=== PATIENT | male | born 1945 | race Caucasian/White ===

== ENCOUNTER → 2021-11-15 | Outpatient (CLI) | payer OTHER ==
--- NOTE | 2021-11-15 17:50 | Diagnostic Imaging Report ---
INDICATION: Left knee pain. Time of Exam: 2:04 PM Multiple views of the left knee were obtained. There is medial and patellofemoral compartment degenerative change with joint space narrowing and marginal spurring. No fracture, dislocation or effusion is detected. IMPRESSION: Degenerative changes. No acute bony abnormality is detected. Dictated by: Dictated on workstation # [id number]
== END ==
LOC: ORTHO 13:45
PROVIDERS: ATTEND Orthopaedic Surgery
DX: M17.12 Unilateral primary osteoarthritis, left knee (principal)
CPT/HCPCS: 20610; 73564

== ENCOUNTER → 2022-01-24 | Outpatient (CLI) | payer OTHER | LOC: ORTHO 09:05 | PROVIDERS: ATTEND Orthopaedic Surgery | DX: M17.12 Unilateral primary osteoarthritis, left knee (principal) | CPT/HCPCS: 99213 ==

== ENCOUNTER 2022-02-09 05:30 | Outpatient (RCR) | payer OTHER ==
[~2022-02-09] VITALS: Ht 188 cm; Wt 100.0 kg
[2022-02-09 10:15] LABS: BASOPHILS % (AUTO) 0 % (0-10); EOSINOPHILS # (AUTO) 0.5 10^3/uL (0.0-0.3); EOSINOPHILS % (AUTO) 7 % (0-10); HEMATOCRIT 40 % (40-54); HEMOGLOBIN 13.5 g/dL (13.3-17.7); LYMPHOCYTES # (AUTO) 2.4 10^3/uL (1.0-4.0); LYMPHOCYTES % (AUTO) 30 % (12-44); MEAN CORPUSCULAR HEMOGLOBIN 32 pg (25-34); MEAN CORPUSCULAR HGB CONC 34 g/dL (32-36); MEAN CORPUSCULAR VOLUME 94 fL (80-99); MEAN PLATELET VOLUME 9.7 fL (9.0-12.2); MONOCYTES # (AUTO) 0.7 10^3/uL (0.0-1.0); MONOCYTES % (AUTO) 9 % (0-12); NEUTROPHILS # (AUTO) 4.1 10^3/uL (1.8-7.8); NEUTROPHILS % (AUTO) 53 % (42-75); PLATELET COUNT 192 10^3/uL (130-400); WHITE BLOOD COUNT 7.7 10^3/uL (4.3-11.0)
[2022-02-09 10:29] LABS: CREATININE SERUM 1.16 MG/DL (0.60-1.30); POTASSIUM 4.3 MMOL/L (3.6-5.0)
[2022-02-09 10:46] LABS: BILIRUBIN,URINE NEGATIVE (NEGATIVE); CLARITY,URINE CLEAR; COLOR,URINE YELLOW; GLUCOSE, URINE (UA) NEGATIVE (NEGATIVE); KETONES,URINE NEGATIVE (NEGATIVE); LEUKOCYTE ESTERASE ,URINE NEGATIVE (NEGATIVE); NITRITE,URINE NEGATIVE (NEGATIVE); PH,URINE 5.5 (5-9); PROTEIN,URINE NEGATIVE (NEGATIVE)
--- NOTE | 2022-02-09 10:59 | Diagnostic Imaging Report ---
INDICATION: Preoperative evaluation for knee surgery COMPARISON: None FINDINGS: Frontal and lateral views of the chest demonstrate normal heart size and pulmonary vascularity. The lungs are clear. There are no signs of infiltrate, pleural effusions or pneumothoraces. The visualized osseous structures show no acute abnormalities. IMPRESSION: 1. No acute process. No signs of infiltrates, effusions or pneumothoraces. Dictated by: Dictated on workstation # [id number]
[2022-02-09] MEDS ORDERED: ASPI-999 PO (11:07)
[2022-02-09] MEDS ORDERED: CARB200C6 PO (11:07)
[2022-02-09] MEDS ORDERED: VIT D (11:07)
[2022-02-09] MEDS ORDERED: BUPR150T28 PO (11:07)
[2022-02-09] MEDS ORDERED: VIT B (11:07)
[2022-02-09] MEDS ORDERED: ATOR80TA76 PO (11:07)
[2022-02-09] MEDS ORDERED: DONE10TA41 PO (11:07)
[2022-02-09] MEDS ORDERED: CARV25TA PO (11:07)
[2022-02-09] MEDS ORDERED: CYCL10TA25 PO (11:07)
[2022-02-09 11:09] LABS: BACTERIA,URINE TRACE /HPF; RBC,URINE RARE /HPF
[2022-02-09 11:10] LABS: SQUAMOUS EPITHELIAL CELL,UR RARE /HPF
[2022-02-09] MEDS ORDERED: PSYL1PAC10 PO (11:13)
[2022-02-09] MEDS ORDERED: IBUP-1773 PO (11:13)
[2022-02-09] MEDS ORDERED: MELA1TAB27 PO (11:13)
[2022-02-09] MEDS ORDERED: ACET-2650 PO (11:13)
[2022-02-09] MEDS ORDERED: MULT-974 PO (11:13)
[2022-02-09] MEDS ORDERED: SEMA1PEN3 SQ (11:13)
[2022-02-09] MEDS ORDERED: MAGN400C PO (11:13)
[2022-02-09] MEDS ORDERED: INSU100V52 SQ (11:13)
[2022-02-09] MEDS ORDERED: LORA10TA7 PO (11:13)
[2022-02-09] MEDS ORDERED: LOSA50TA63 PO (11:13)
[2022-02-09] MEDS ORDERED: MEMA10TA57 PO (11:13)
[2022-02-09] MEDS ORDERED: OMEP20CA18 PO (11:13)
[2022-02-09] MEDS ORDERED: METF-397 PO (11:13)
[2022-02-09 11:14] VITALS: BP 118/81
== END 2022-02-09 11:38 | disposition home or self-care (01) ==
LOC: PREOP 05:30 → EDSTATUS 09:00 → PREOP 11:38
PROVIDERS: ATTEND Orthopaedic Surgery
DX: Z01.818 Encounter for other preprocedural examination (principal); M17.12 Unilateral primary osteoarthritis, left knee; Z11.2 Encounter for screening for other bacterial diseases
CPT/HCPCS: 36415; 71046; 80048; 81000; 85025; 87081; 93005

== ENCOUNTER 2022-02-17 10:53 | Inpatient (IN) | payer OTHER, MEDICARE ==
[2022-02-17] VITALS (10 sets, daily range): BP systolic 142–187; BP diastolic 78–104
[~2022-02-17] VITALS: Ht 188 cm; Wt 101.3 kg
[~2022-02-17 10:53] MED LIST: ACET-2650 PO; ASPI-999 PO; ATOR80TA76 PO; BUPR150T28 PO; CARB200C6 PO; CARV25TA PO; CYCL10TA25 PO; DONE10TA41 PO; IBUP-1773 PO; INSU100V52 SQ; LORA10TA7 PO; LOSA50TA63 PO; MAGN400C PO; MELA1TAB27 PO; MEMA10TA57 PO; METF-397 PO; MULT-974 PO; OMEP20CA18 PO; PSYL1PAC10 PO; SEMA1PEN3 SQ; VIT B; VIT D
[2022-02-17] MEDS ORDERED: ceFAZolin 2 GM IV Premixed 50 ML IV ONE (11:30)
[2022-02-17] MEDS: LACTATED RINGERS 1,000 ML IV PRN ×2 (11:40→13:55)
[2022-02-17] MEDS ORDERED: LIDOCAINE PF 2% 5 ML (XYLOCAINE) VIAL ONE (11:48)
[2022-02-17] MEDS ORDERED: MIDAZOLAM 2 MG/2 ML (VERSED) VIAL ONE (11:48)
[2022-02-17] MEDS ORDERED: ROPIVACAINE 5MG/ML 30ML VIAL ONE (11:48)
[2022-02-17] MEDS ORDERED: ONDANSETRON 4 MG/2 ML (SDV) Z0FRAN ONE ×4 (11:57→17:00)
[2022-02-17] MEDS ORDERED: SODIUM CHLORIDE 0.9% IRRIGATIO 150 ML, TRANEXAMIC ACID INJECTION 3,000 MG IR ONE ×2 (12:00)
[2022-02-17] MEDS ORDERED: proPOfol 200 MG/20 ML (DIPRIVAN) VIAL IV ONE (12:15)
[2022-02-17] MEDS ORDERED: fentaNYL INJ 100 MCG/2 ML AMP ONE (12:17)
[2022-02-17] MEDS ORDERED: TRANEXAMIC ACID 100 MG/ML 10 ML INJECTION ONE (12:31)
--- NOTE | 2022-02-17 12:31 | Progress Note-Pre Operative ---
Pre-Operative Progress Note Date of Available H&P: Jan 24, 2022 Date H&P Reviewed: Feb 17, 2022 Time H&P Reviewed: 12:20 History & Physical: H&P Reviewed, Patient Examed, No changes noted Pre-Operative Diagnosis: Left Knee Primary OA MARI MITCHELL MD Feb 17, 2022 12:31
[2022-02-17] MEDS ORDERED: HYDROmorphone 2 MG/ML VIAL (DILAUDID) ONE (13:00)
[2022-02-17] MEDS ORDERED: PHENYLEPHRINE 100 MCG/ML 10 ML (ANESTHESIA) SYR ONE (14:47)
[2022-02-17] MEDS ORDERED: SEVOFLURANE (ULTANE) 15 ML INHAL SOLN ONE ×2 (14:47→14:48)
--- NOTE | 2022-02-17 15:04 | Operative Report - Ortho ---
Operative Report Surgeon (s)/Suction Roller (s) Surgeon MARI MITCHELL MD Suction Roller n/a Pre-Operative Diagnosis Left Knee Primary OA Post-Operative Diagnosis same Operative Report Date of Procedure: Feb 17, 2022 Name of Procedure Performed: Left Total Knee Arthroplasty Description & Findings After obtaining informed consent and marking the patient in the preoperative holding area, the patient did receive IV antibiotics. Patient was taken to the operating room and anesthesia was induced. Surgical timeout was taken. The left lower extremity was prepped and draped in the usual sterile fashion. Incision was made and carried down to fascia. Arthrotomy was performed on the medial side of the patella. Patella was retracted laterally and knee was flexed. Found to have circumferential osteophtye around the distal femur as well as exposed bone in the medial compartment. Hole was made in the distal femur for the intramedullary distal femoral cutting guide. Resection was made then the femur was sized as a 7. 4-in-1 block for a size [address]. Anterior cut was made and there was no notch. Posterior cut was made followed by the chamfers. Box cut was performed. Lug holes were drilled. Attention was turned to the tibial side, extramedullary tibial guide was put into place and aligned with the tibial crest. It was set to take 2 mm off of the affected medial side. Drop hayden was used to confirm alignment. Resection was made and was parallel to the joint line. Tibial bone block was removed. Lamina icu specialist was put into place and the menisci and posterior osteophytes we re removed. The knee was trialed with a size 7 femur and a size 6 tibia with a 9 mm poly trial. It was found to come out to full extension and flexed beyond 120 degrees. It was stable to varus and valgus stress throughout its range of motion. This was accepted. Knee was brought out into extension and the patella was prepared for an inset patellar component. Osteophytes were removed from around the perimeter of the patella. Trial implants were removed. The cut bone surfaces were lavaged with pulsatile normal saline. Implants were opened and assembled on the back table. Cement was mixed. Cement was applied to the cut bone surface as well as the implant surface. A size 6 tibial component was impacted into placed and excess cement was removed using a [place]. A size 7 femoral component was impacted into place and excess cement was removed using a [place]. Tibial tray was lavaged with saline. A 9 mm thick polyethylene component was locked into placed and the locking mechanism was checked. Knee was brought into extension. Patella was irrigated and dried and the patellar component was cemented into position. The knee was irrigated with normal saline. Irrigation was removed and tranexamic acid was placed. Dilute betadine soak was performed followed by further irrigation. Once the cement had set, the knee was once again trialed; found to come to full extension, flexed beyond 120 degrees, and was stable to varus and valgus stress. Further tranexamic acid was applied for hemostasis. Tourniquet was dropped and electrocautery was used for further hemostasis. Fascial layer was closed with #2 Stratafix. The subcutaneous layer was closed with 2-0 Vicryl. The skin was closed with a running subcuticular 3-0 V-loc. Wound was dressed with mastisol, steri-strips, xeroform, 4x4s, ABD, webril, and TOMAS wrap. Patient tolerated the procedure well and was stable to the recovery room. Anesthesia Type General plus regional Estimated Blood Loss ~150 mL Specimen(s) collected/removed None MARI MITCHELL MD Feb 17, 2022 15:04
--- NOTE | 2022-02-17 15:05 | Physical Therapy Progress Note ---
Therapy Progress Note Order for PT evaluation received. Patient is still not in room at 1500, will start evaluation in the morning. ROXANNE DEAN PT Feb 17, 2022 15:05
[2022-02-17] MEDS ORDERED: ceFAZolin 2 GM IV Premixed 50 ML IV SCH (15:15)
[2022-02-17] MEDS ORDERED: BISACODYL 5 MG (DULCOLAX) TABLET PO PRN (15:15)
[2022-02-17] MEDS ORDERED: MILK OF MAGNESIA 400 MG/5 ML 30 ML UDC PO PRN (15:15)
--- NOTE | 2022-02-17 15:38 | Diagnostic Imaging Report ---
INDICATION: Postoperative knee replacement. TECHNIQUE: 2 post operative radiographs of the left knee 3:25 PM CORRELATION STUDY: None FINDINGS: There are postsurgical changes of a total knee arthroplasty. Alignment is anatomic. Installed hardware appearing unremarkable. Overlying soft tissue gas collections and edema. IMPRESSION: Postsurgical changes of a left total knee replacement. Dictated by: Dictated on workstation # [id number]
[2022-02-17] MEDS ORDERED: HYDROmorphone 2 MG/ML VIAL (DILAUDID) IV ONE (15:45)
[2022-02-17] MEDS ORDERED: ONDANSETRON 4 MG/2 ML (SDV) Z0FRAN IVP PRN (15:45)
[2022-02-17] MEDS ORDERED: morphine INJ 10 MG/ML 1ML (SYR OR VIAL) IVP ONE (15:45)
[2022-02-17] MEDS: inSUlin ASPART (NovoLOG) 1 UNIT/0.01 ML (CHARGE PER UNIT) SC SCH ×2 (16:48→21:00)
[2022-02-17] MEDS ORDERED: NS IV 1000 ML 1,000 ML ONE (17:00)
[2022-02-17] MEDS ORDERED: morphine INJ 4 MG/ML 1 ML (VIAL/SYRINGE) ONE (17:00)
[2022-02-17] MEDS: NS IV 1000 ML 1,000 ML IV SCH (17:10)
[2022-02-17] MEDS: ONDANSETRON 4 MG/2 ML (SDV) Z0FRAN IV PRN (17:10)
[2022-02-17] MEDS: morphine INJ 4 MG/ML 1 ML (VIAL/SYRINGE) IVP PRN ×2 (17:10→23:11)
[2022-02-17] MEDS: ASPIRIN E.C. 81 MG (ECOTRIN) TAB PO SCH (17:43)
[2022-02-17] MEDS: CELECOXIB 100 MG (CeleBREX) CAP PO SCH (20:11)
[2022-02-17] MEDS: DOCUSATE SODIUM 100 MG (COLACE) CAP PO SCH (20:11)
[2022-02-17] MEDS: ceFAZolin 2 GM IV Premixed 50 ML IV SCH (20:12)
[2022-02-18] VITALS (8 sets, daily range): BP systolic 106–178; BP diastolic 64–109
[2022-02-18] MEDS: NS IV 1000 ML 1,000 ML IV SCH ×3 (01:15→21:43)
[2022-02-18] MEDS: morphine INJ 4 MG/ML 1 ML (VIAL/SYRINGE) IVP PRN ×4 (01:52→10:06)
[2022-02-18] MEDS: ceFAZolin 2 GM IV Premixed 50 ML IV SCH ×3 (05:08→21:44)
[2022-02-18] MEDS: MULTIVIT W/MINERALS TAB (THERAGRAN M) PO SCH (05:08)
[2022-02-18] MEDS: inSUlin ASPART (NovoLOG) 1 UNIT/0.01 ML (CHARGE PER UNIT) SC SCH ×4 (05:45→20:49)
[2022-02-18 06:28] LABS: HEMOGLOBIN 12.9 g/dL (13.3-17.7)
[2022-02-18] MEDS: ONDANSETRON 4 MG/2 ML (SDV) Z0FRAN IV PRN ×2 (06:39→10:10)
--- NOTE | 2022-02-18 08:27 | Progress Note - Ortho ---
Progress Note Subjective Date of Exam 02/18/22 Chief Complaint POD #1 L TKA HPI/Events since last exam having difficulty with pain, significant difficulty mobilizing Review of Systems - Allergies: Coded Allergies: No Known Drug Allergies (Unverified , 02/09/22) Home Meds Reported Medications Acetaminophen (Tylenol Arthritis) 650 Mg Tablet.er, 1300 MG PO Q8H, TAB 02/09/22 Psyllium Husk (with Sugar) (Metamucil Packet) 3.4 Gram Powd.pack, 3.4 GM PO UD, EACH 02/09/22 Semaglutide (Ozempic) 1 Mg/0.75 Ml (4 Mg/3 Ml) Pen.injctr, 1 MG SQ WEEK, EA 02/09/22 Omeprazole (Omeprazole) 20 Mg Capsule.dr, 20 MG PO DAILY, CAP 02/09/22 Multivitamin (Multi-Vitamin Daily) 1 Each Tablet, 1 EACH PO DAILY, TAB 02/09/22 Metformin HCl (Metformin HCl) 500 Mg Tablet, 500 MG PO DAILY, TAB 02/09/22 Memantine HCl (Memantine HCl) 10 Mg Tablet, 10 MG PO BID, TAB 02/09/22 Melatonin/Pyridoxine HCl (B6) (Melatonin 3 mg Tablet) 3 Mg-10 Mg Tablet, 1 EACH PO HS, TAB 02/09/22 Magnesium Oxide (Magnesium) 400 Mg Magnesium Capsule, 400 MG PO DAILY, CAP 02/09/22 Losartan Potassium (Losartan Potassium) 50 Mg Tablet, 50 MG PO DAILY, TAB 02/09/22 Loratadine (Loratadine) 10 Mg Tablet, 10 MG PO DAILY, TAB 02/09/22 Insulin Glargine,Hum.rec.anlog (Insulin Glargine) 100 Unit/Ml Vial, 100 UNIT SQ EVENING, VIAL 02/09/22 Ibuprofen (Ibuprofen) 600 Mg Tablet, 600 MG PO TID PRN for PAIN-MILD, TAB 02/09/22 Donepezil HCl (Donepezil HCl) 10 Mg Tablet, 10 MG PO BID, TAB 02/09/22 Cyclobenzaprine HCl (Cyclobenzaprine HCl) 10 Mg Tablet, 10 MG PO BID, TAB 02/09/22 [Vit D3 25MCG] No Conflict Check 02/09/22 [Vit B12 1000MG D] No Conflict Check 02/09/22 Carbamazepine (Carbamazepine) 200 Mg Cpmp.12hr, 200 MG PO Q12H, CAP 02/09/22 Bupropion HCl (Bupropion HCl Sr) 150 Mg Tablet.er, 150 MG PO BID, TAB 02/09/22 Atorvastatin Calcium (Atorvastatin Calcium) 80 Mg Tablet, 80 MG PO DAILY, TAB 02/09/22 Aspirin (Aspirin) 81 Mg Tab.chew, 81 MG PO DAILY, TAB 02/09/22 Discontinued Reported Medications Carvedilol (Carvedilol) 25 Mg Tablet, 25 MG PO BID, TAB 02/09/22 Objective Exam L Knee: Dressing C/D/I, +DF of ankle, no s/s of DVT Vital Signs Vital Signs Date Time Temp Pulse Resp B/P (MAP) Pulse Ox O2 Delivery O2 Flow Rate FiO2 02/18/22 07:19 36.9 95 20 178/109 (132) 94 Room Air 02/18/22 04:34 38.0 98 18 154/97 (116) 93 Room Air 02/18/22 00:00 37.7 93 18 164/97 (119) 94 Room Air 02/17/22 21:00 96 Room Air 02/17/22 20:07 36.0 85 18 187/100 (129) 95 Room Air 02/17/22 20:07 36.0 85 18 187/100 (129) 95 Room Air 02/17/22 16:36 35.9 69 18 165/78 (107) 96 Room Air 02/17/22 16:00 Room Air 10.00 02/17/22 15:48 36.1 21 177/100 (125) 96 Room Air 02/17/22 15:40 16 181/104 (129) 97 Room Air 02/17/22 15:30 OxyMask 10.00 02/17/22 15:30 14 170/101 (124) 100 OxyMask 10.00 02/17/22 15:20 12 169/98 (121) 99 OxyMask 10.00 02/17/22 15:10 14 161/104 (123) 96 OxyMask 10.00 02/17/22 15:01 16 153/96 (115) 96 OxyMask 10.00 02/17/22 14:56 OxyMask 10.00 02/17/22 14:56 36.3 16 165/102 (123) 96 OxyMask 10.00 02/17/22 10:55 36.5 80 18 142/103 (116) 95 Room Air I & O 02/18/22 07:00 Intake Total 1000 ml Output Total 1300 ml Balance -300 ml Lab Results Laboratory Tests 02/17/22 11:35: Glucometer 125H 02/17/22 15:00: Glucometer 77 02/17/22 16:39: Glucometer 138H 02/17/22 20:01: Glucometer 171H 02/18/22 05:26: Glucometer 196H 02/18/22 05:58: Hemoglobin 12.9L, Hematocrit 38L Imaging 2 views of the left knee dated 02/17/22 were reviewed from PACS and demonstrated appropriate position of components without complication Assessment and Plan Assessment Left Knee Primary Osteoarthritis s/p Left Total Knee Arthroplasty Problem List Left Knee Primary Osteoarthritis s/p Left Total Knee Arthroplasty Plan PT/OT DVT Prophylaxis Will make inpatient status; may require extended therapy (will consider swing bed at [facility] given patient's home) Pain control Final Diagonsis Left Knee Primary Osteoarthritis s/p Left Total Knee Arthroplasty Level of the visit: Level 3 (global postop) MARI MITCHELL MD Feb 18, 2022 08:27
[2022-02-18] MEDS ORDERED: PSYLLIUM POWDER (METAMUCIL) 5.8 GM PACKET PO SCH (08:45)
--- NOTE | 2022-02-18 08:52 | Physical Therapy Evaluation ---
PT Evaluation-General Medical Diagnosis Admission Date Medical Diagnosis: left TKA Onset Date: Feb 17, 2022 Therapy Diagnosis Therapy Diagnosis: impaired mobility, ROM Precautions Precautions/Isolations: Fall Prevention, Standard Precautions Weight Bear Status Right Lower Extremity: Right Full Weight Bearing Left Lower Extremity: Left Weight Bearing/Tolerated Referral Physician: Mell Reason for Referral: Evaluation/Treatment Social History Current Living Status: Spouse Entry Into Home: Stairs Without Railing PT Steps Into Home: 1 Prior Prior Level of Function SCALE: Activities may be completed with or without assistive devices. 0-Zzkrilvnka-xrwbxxu completes the activity by him/herself with no assistance from a helper. 5-Set-up or Clean-up Assistance-helper sets up or cleans up; patient completes activity. [place] assists only prior to or following the activity. 4-Supervision or Touching Assistance-helper provides verbal cues and/or touching/steadying and/or contact guard assistance as patient completes activity. Assistance may be provided throughout the activity or intermittently. 3-Partial/Moderate Assistance-helper does LESS THAN HALF the effort. [place] lifts, holds or supports trunk or limbs, but provides less than half the effort. 2-Substantial/Maximal Assistance-helper does MORE THAN HALF the effort. [place] lifts or holds trunk or limbs and provides more than half the effort. 0-Thdbayugn-lghwie does ALL the effort. Patient does none of the effort to complete the activity. Or, the assistance of 2 or more helpers is required for the patient to complete the activity. If activity was not attempted, code reason: 7-Patient Refused. 9-Not Applicable-not attempted and the patient did not perform the activity before the current illness, exacerbation or injury. 10-Not Attempted due to Environmental Limitations-(lack of equipment, weather restraints, etc.). 88-Not Attempted due to Medical Conditions or Safety Concerns. Bed Mobility: 6 Transfers (B,C,W/C): 6 Gait: 6 Stairs: 6 Patient states he used a SPC PT Evaluation-Current Subjective Patient in bed pre tx, agrees to PT, has 9/10 pain in left knee. Patient seems very foggy, slow to answer questions, sometimes he cannot answer questions. Pt/Family Goals none stated Objective Patient Orientation: Person, Place, Situation Attachments: Almodovar Catheter ROM/Strength ROM Lower Extremities left knee extension +5 degrees, flexion 45 degrees Sensory Hearing: Functional Sensation Right Lower Extremit: Intact Sensation Left Lower Extremity: Intact Transfers Roll Left to Right (QC): 1 Lying to Sitting/Side of Bed(Q: 1 Patient was not able to sit to the side of the bed completely due to left knee p ain even with total support from therapist. Layed back down and got CPM on. Balance Sitting Static: Poor Sitting Dynamic: Poor Treatment LLE total knee protocol x10 (AP, QS, HS, SAQ, SLR), patient has little to no active movement in left knee. Assessment/Needs Patient in bed post tx with nurse call, phone, tray, all needs met. Patient has impaired mobility and ROM. Doctor came in and discussed pain meds with patient. Rehab Potential: Guarded PT Alf Goals Jigmaker Goals PT Jigmaker Goals Time Frame: Feb 25, 2022 Roll Left & Right (QC): 4 Sit to Lying (QC): 4 Lying-Sitting on Side/Bed(QC): 4 Sit to Stand (QC): 4 Chair/Nyb-lm-[place] Xfer(QC): 4 Walk 10 feet (QC): 4 Walk 50ft with 2 Turns (QC): 4 PT Plan Problem List Problem List: Activity Tolerance, Functional Strength, Safety, Balance, Gait, Transfer, Bed Mobility, ROM Treatment/Plan Treatment Plan: Continue Plan of Care Treatment Plan: Bed Mobility, Education, Functional Activity Jenni, Functional Strength, Gait, Safety, Therapeutic Exercise, Transfers Treatment Duration: Feb 25, 2022 Frequency: 11 times per week Estimated Hrs Per Day: .25 hour per day Patient and/or Family Agrees t: Yes Safety Risks/Education Patient Education: Correct Positioning, Safety Issues Teaching Recipient: Patient Teaching Methods: Demonstration, Discussion Response to Teaching: Reinforcement Needed Discharge Recommendations Plan Patient will perform bed mobility and transfer training, balance and endurance training, functional strengthening, stair training, gait training, and education, to improve functional mobility and independence at home. Therapy Discharge Recommendati: Scheduled Assistance, Home & Family, Post Acute PT Time/GCodes Time In: 805 Time Out: 826 Total Billed Treatment Time: 21 Total Billed Treatment 1 visit JESSICA 21ROXANNE PRITCHETT PT Feb 18, 2022 08:52
[2022-02-18] MEDS: MEMANTINE 10 MG (NAMENDA) TABLET PO SCH ×2 (10:00→20:48)
[2022-02-18] MEDS: CYCLOBENZAPRINE 10 MG (FLEXERIL) TAB PO SCH ×2 (10:00→20:48)
[2022-02-18] MEDS: DONEPEZIL 10 MG (ARICEPT) TAB PO SCH ×2 (10:00→20:48)
[2022-02-18] MEDS: LOSARTAN 50 MG (COZAAR) TAB PO SCH (10:00)
[2022-02-18] MEDS: DOCUSATE SODIUM 100 MG (COLACE) CAP PO SCH ×2 (10:01→20:48)
[2022-02-18] MEDS: CELECOXIB 100 MG (CeleBREX) CAP PO SCH ×2 (10:01→20:48)
[2022-02-18] MEDS: MAGNESIUM OXIDE (MAG-OX)400 MG TAB PO SCH (10:01)
[2022-02-18] MEDS: LORATADINE (CLARITIN) 10 MG TAB PO SCH (10:01)
[2022-02-18] MEDS: metFORMIN 500 MG (GLUCOPHAGE) TAB PO SCH (10:01)
[2022-02-18] MEDS: ASPIRIN E.C. 81 MG (ECOTRIN) TAB PO SCH ×2 (10:01→18:03)
[2022-02-18] MEDS: PANTOPRAZOLE 20 MG TABLET (PROTONIX) PO SCH (10:01)
[2022-02-18] MEDS: buPROPion SR 150 MG (WELLBUTRIN SR) TAB PO SCH ×2 (10:01→20:48)
[2022-02-18] MEDS: HYDROcodone/APAP 7.5 MG/325 MG (LORTAB, LORCET PLUS) TABLET PO PRN ×3 (10:07→20:48)
[2022-02-18] MEDS: carBAMazepine 200 MG (TEGretol) TAB PO SCH ×2 (10:07→20:48)
--- NOTE | 2022-02-18 13:37 | Anesthesia-General Post-Op ---
General Patient Condition Mental Status/LOC: Same as Preop Cardiovascular: Satisfactory Nausea/Vomiting: Absent Respiratory: Satisfactory Pain: Controlled Complications: Absent Post Op Complications Complications None Follow Up Care/Instructions Patient Instructions None needed. Anesthesia/Patient Condition Patient Condition Patient is doing well, no complaints, stable vital signs, no apparent adverse anesthesia problems. No complications reported per nursing. USMAN ROCA CRNA Feb 18, 2022 13:37
--- NOTE | 2022-02-18 14:48 | Physical Therapy Daily Note ---
PT Daily Note-Current Subjective Patient in bed pre tx, states his CPM hurt too much to bear and nursing took it off. Patient doesn't want to use it now. CPM was set on low settings 0/50 degrees and he states he was able to tolerate it for a while but his knee tightened up. Patient is still slow to respond to questions, conversation is not quite right, seems a little confused. Appearance Patient in bed post tx with nurse call, phone, tray, all needs met. Mental Status Patient Orientation: Person, Place, Situation Attachments: Almodovar Catheter, IV Transfers SCALE: Activities may be completed with or without assistive devices. 6-Stkaprmreh-usluowk completes the activity by him/herself with no assistance from a helper. 5-Set-up or Clean-up Assistance-helper sets up or cleans up; patient completes activity. [place] assists only prior to or following the activity. 4-Supervision or Touching Assistance-helper provides verbal cues and/or touching/steadying and/or contact guard assistance as patient completes activity. Assistance may be provided throughout the activity or intermittently. 3-Partial/Moderate Assistance-helper does LESS THAN HALF the effort. [place] lifts, holds or supports trunk or limbs, but provides less than half the effort. 2-Substantial/Maximal Assistance-helper does MORE THAN HALF the effort. [place] lifts or holds trunk or limbs and provides more than half the effort. 6-Kstiozuqu-kixeev does ALL the effort. Patient does none of the effort to complete the activity. Or, the assistance of 2 or more helpers is required for the patient to complete the activity. If activity was not attempted, code reason: 7-Patient Refused. 9-Not Applicable-not attempted and the patient did not perform the activity before the current illness, exacerbation or injury. 10-Not Attempted due to Environmental Limitations-(lack of equipment, weather restraints, etc.). 88-Not Attempted due to Medical Conditions or Safety Concerns. Roll Left & Right (QC): 3 Sit to Lying (QC): 3 Lying to Sitting/Side of Bed(Q: 3 Sit to Stand (QC): 3 Patient was mod assist for supine <-> sit, he was nauseated after sitting, eventually it passed and he was able to stand with mod assist for about 20 seconds before needing to sit. Weight Bearing Right Lower Extremity: Right Full Weight Bearing Left Lower Extremity: Left Weight Bearing/Tolerated Exercises Seated Therapy Exercises: Ankle pumps, Long arc quads, Hamstring Curls Seated Reps: 10 (Patient was barely able to move his leg, maybe a couple of inches into both extension and flexion.) Treatments bed mobility, standing, left knee ROM Assessment Current Status: Poor Progress patient complains of pain preventing him from moving, he states "if they could only find the right combination of pain meds this would be a lot easier" PT Tuckpointer Cleaner [place] Goals Fdc Goals PT Fdc Goals Time Frame: Feb 25, 2022 Roll Left & Right (QC): 4 Sit to Lying (QC): 4 Lying-Sitting on Side/Bed(QC): 4 Sit to Stand (QC): 4 Chair/Pjh-ga-Qxjuv Xfer(QC): 4 Walk 10 feet (QC): 4 Walk 50ft with 2 Turns (QC): 4 PT Plan Problem List Problem List: Activity Tolerance, Functional Strength, Safety, Balance, Gait, Transfer, Bed Mobility, ROM Treatment/Plan Treatment Plan: Continue Plan of Care Treatment Plan: Bed Mobility, Education, Functional Activity Jenni, Functional Strength, Gait, Safety, Therapeutic Exercise, Transfers Treatment Duration: Feb 25, 2022 Frequency: 11 times per week Estimated Hrs Per Day: .25 hour per day Patient and/or Family Agrees t: Yes Safety Risks/Education Patient Education: Correct Positioning, Safety Issues Teaching Recipient: Patient Teaching Methods: Demonstration, Discussion Response to Teaching: Reinforcement Needed Time/GCodes Time In: 1414 Time Out: 1430 Total Billed Treatment Time: 16 Total Billed Treatment 1 visit FA 16ROXANNE PRITCHETT PT Feb 18, 2022 14:48
[2022-02-18] MEDS: ACETAMINOPHEN 500 MG TAB (TYLENOL) PO PRN (16:57)
[2022-02-18] MEDS: MELATONIN 3 MG TABLET PO SCH (20:48)
[2022-02-19 04:47] VITALS: BP 120/79
[2022-02-19] MEDS: MULTIVIT W/MINERALS TAB (THERAGRAN M) PO SCH (06:29)
[2022-02-19] MEDS: inSUlin ASPART (NovoLOG) 1 UNIT/0.01 ML (CHARGE PER UNIT) SC SCH ×4 (06:29→21:14)
[2022-02-19 07:20] VITALS: BP 108/69
[2022-02-19] MEDS: NS IV 1000 ML 1,000 ML IV SCH ×2 (07:26→17:19)
[2022-02-19] MEDS: CELECOXIB 100 MG (CeleBREX) CAP PO SCH ×2 (08:10→20:17)
[2022-02-19] MEDS: HYDROcodone/APAP 7.5 MG/325 MG (LORTAB, LORCET PLUS) TABLET PO PRN ×2 (08:10→15:49)
[2022-02-19] MEDS: DONEPEZIL 10 MG (ARICEPT) TAB PO SCH ×2 (08:10→20:17)
--- NOTE | 2022-02-19 08:10 | Progress Note - Ortho ---
Progress Note Subjective Date of Exam 02/19/22 Chief Complaint POD #2 L TKA HPI/Events since last exam pain better controlled, no progress with therapy yesterday at least partially due to pain Review of Systems - Allergies: Coded Allergies: No Known Drug Allergies (Unverified , 02/09/22) Home Meds Reported Medications Acetaminophen (Tylenol Arthritis) 650 Mg Tablet.er, 1300 MG PO Q8H, TAB 02/09/22 Psyllium Husk (with Sugar) (Metamucil Packet) 3.4 Gram Powd.pack, 3.4 GM PO UD, EACH 02/09/22 Semaglutide (Ozempic) 1 Mg/0.75 Ml (4 Mg/3 Ml) Pen.injctr, 1 MG SQ WEEK, EA 02/09/22 Omeprazole (Omeprazole) 20 Mg Capsule.dr, 20 MG PO DAILY, CAP 02/09/22 Multivitamin (Multi-Vitamin Daily) 1 Each Tablet, 1 EACH PO DAILY, TAB 02/09/22 Metformin HCl (Metformin HCl) 500 Mg Tablet, 500 MG PO DAILY, TAB 02/09/22 Memantine HCl (Memantine HCl) 10 Mg Tablet, 10 MG PO BID, TAB 02/09/22 Melatonin/Pyridoxine HCl (B6) (Melatonin 3 mg Tablet) 3 Mg-10 Mg Tablet, 1 EACH PO HS, TAB 02/09/22 Magnesium Oxide (Magnesium) 400 Mg Magnesium Capsule, 400 MG PO DAILY, CAP 02/09/22 Losartan Potassium (Losartan Potassium) 50 Mg Tablet, 50 MG PO DAILY, TAB 02/09/22 Loratadine (Loratadine) 10 Mg Tablet, 10 MG PO DAILY, TAB 02/09/22 Insulin Glargine,Hum.rec.anlog (Insulin Glargine) 100 Unit/Ml Vial, 100 UNIT SQ EVENING, VIAL 02/09/22 Ibuprofen (Ibuprofen) 600 Mg Tablet, 600 MG PO TID PRN for PAIN-MILD, TAB 02/09/22 Donepezil HCl (Donepezil HCl) 10 Mg Tablet, 10 MG PO BID, TAB 02/09/22 Cyclobenzaprine HCl (Cyclobenzaprine HCl) 10 Mg Tablet, 10 MG PO BID, TAB 02/09/22 [Vit D3 25MCG] No Conflict Check 02/09/22 [Vit B12 1000MG D] No Conflict Check 02/09/22 Carbamazepine (Carbamazepine) 200 Mg Cpmp.12hr, 200 MG PO Q12H, CAP 02/09/22 Bupropion HCl (Bupropion HCl Sr) 150 Mg Tablet.er, 150 MG PO BID, TAB 02/09/22 Atorvastatin Calcium (Atorvastatin Calcium) 80 Mg Tablet, 80 MG PO DAILY, TAB 02/09/22 Aspirin (Aspirin) 81 Mg Tab.chew, 81 MG PO DAILY, TAB 02/09/22 Discontinued Reported Medications Carvedilol (Carvedilol) 25 Mg Tablet, 25 MG PO BID, TAB 02/09/22 Objective Exam L Knee: Incision C/D/I, +DF of ankle, no s/s of DVT Vital Signs Vital Signs Date Time Temp Pulse Resp B/P (MAP) Pulse Ox O2 Delivery O2 Flow Rate FiO2 02/19/22 07:36 95 Room Air 0.00 02/19/22 07:20 37.0 103 18 108/69 (82) 95 Room Air 02/19/22 04:47 37.3 100 20 120/79 (93) 94 Room Air 0.00 02/18/22 23:50 36.5 94 20 106/64 (78) 95 Room Air 02/18/22 20:48 36.8 02/18/22 20:12 36.8 98 18 145/84 (104) 96 Room Air 02/18/22 20:00 96 Room Air 02/18/22 17:27 37.9 02/18/22 16:57 37.9 02/18/22 15:49 37.9 105 20 146/94 (111) 93 Room Air 0.00 02/18/22 15:30 37.9 105 20 146/94 (111) 93 Room Air 02/18/22 12:00 37.6 116 22 111/85 (94) 92 Room Air 02/18/22 10:35 94 Room Air 10.00 I & O 02/19/22 07:00 Intake Total 1840 ml Output Total 2220 ml Balance -380 ml Lab Results Laboratory Tests 02/18/22 11:53: Glucometer 330H 02/18/22 16:02: Glucometer 228H 02/18/22 20:18: Glucometer 205H 02/19/22 05:50: Hemoglobin 11.0L, Hematocrit 32L 02/19/22 06:28: Glucometer 155H Microbiology 02/17/22 MRSA Screen - Final, Complete MRSA not isolated Assessment and Plan Assessment Left Knee Primary Osteoarthritis s/p Left Total Knee Arthroplasty Problem List Left Knee Primary Osteoarthritis s/p Left Total Knee Arthroplasty Plan PT/OT DVT Prophylaxis Based on progress so far, will plan for swing bed at [facility] on Sunday if accepting and available Final Diagonsis Left Knee Primary Osteoarthritis s/p Left Total Knee Arthroplasty Level of the visit: Level 3 (postop global) MARI MITCHELL MD Feb 19, 2022 08:10
[2022-02-19] MEDS: metFORMIN 500 MG (GLUCOPHAGE) TAB PO SCH (08:11)
[2022-02-19] MEDS: ASPIRIN E.C. 81 MG (ECOTRIN) TAB PO SCH ×2 (08:11→17:19)
[2022-02-19] MEDS: CYCLOBENZAPRINE 10 MG (FLEXERIL) TAB PO SCH ×2 (08:11→20:17)
[2022-02-19] MEDS: MAGNESIUM OXIDE (MAG-OX)400 MG TAB PO SCH (08:11)
[2022-02-19] MEDS: MEMANTINE 10 MG (NAMENDA) TABLET PO SCH ×2 (08:11→20:17)
[2022-02-19] MEDS: buPROPion SR 150 MG (WELLBUTRIN SR) TAB PO SCH ×2 (08:11→20:17)
[2022-02-19] MEDS: LOSARTAN 50 MG (COZAAR) TAB PO SCH (08:11)
[2022-02-19] MEDS: LORATADINE (CLARITIN) 10 MG TAB PO SCH (08:11)
[2022-02-19] MEDS: DOCUSATE SODIUM 100 MG (COLACE) CAP PO SCH ×2 (08:11→20:17)
[2022-02-19] MEDS: PANTOPRAZOLE 20 MG TABLET (PROTONIX) PO SCH (08:11)
[2022-02-19] MEDS: carBAMazepine 200 MG (TEGretol) TAB PO SCH ×2 (08:11→20:17)
--- NOTE | 2022-02-19 08:22 | Physical Therapy Daily Note ---
PT Daily Note-Current Subjective Patient in bed pre tx, agrees to PT, has 6/10 pain in left knee. Patient has an ankle brace for his left ankle now, donned at the beginning of PT. Appearance Patient in bed post tx with nurse call, phone, tray, all needs met. Mental Status Patient Orientation: Person, Place, Situation Attachments: [place]mod[place]ar Catheter, Polar Pack Transfers SCALE: Activities may be completed with or without assistive devices. 2-Jpesvxulwf-yvtevmx completes the activity by him/herself with no assistance from a helper. 5-Set-up or Clean-up Assistance-helper sets up or cleans up; patient completes activity. [place] assists only prior to or following the activity. 4-Supervision or Touching Assistance-helper provides verbal cues and/or touching/steadying and/or contact guard assistance as patient completes activity. Assistance may be provided throughout the activity or intermittently. 3-Partial/Moderate Assistance-helper does LESS THAN HALF the effort. [place] lifts, holds or supports trunk or limbs, but provides less than half the effort. 2-Substantial/Maximal Assistance-helper does MORE THAN HALF the effort. [place] lifts or holds trunk or limbs and provides more than half the effort. 4-Ahemqrmbi-gzttse does ALL the effort. Patient does none of the effort to complete the activity. Or, the assistance of 2 or more helpers is required for the patient to complete the activity. If activity was not attempted, code reason: 7-Patient Refused. 9-Not Applicable-not attempted and the patient did not perform the activity before the current illness, exacerbation or injury. 10-Not Attempted due to Environmental Limitations-(lack of equipment, weather restraints, etc.). 88-Not Attempted due to Medical Conditions or Safety Concerns. Roll Left & Right (QC): 4 Sit to Lying (QC): 3 (Samantha) Lying to Sitting/Side of Bed(Q: 3 (Samantha) Sit to Stand (QC): 4 Weight Bearing Right Lower Extremity: Right Full Weight Bearing Left Lower Extremity: Left Weight Bearing/Tolerated Gait Training Distance: 15' Walk 10 feet (QC): 4 Gait Persons Needed: 1 Gait Assistive Device: FWW Antalgic gait, patient doesn't seem to be able to bear any weight on his left leg. Exercises Supine Ex: Ankle pumps, Quad Set, Heel Slides (AAROM), Short Arc Quads (AAROM), Straight leg raise (AAROM) Supine Reps: 10 Treatments bed mobility and transfers, ambulation, LE ROM Assessment Current Status: Fair Progress slight progress with functional mobility, left knee ROM has improved, now about 4 degrees from full extension and about 70 degrees flexion PT Halfway Goals Fundraising Manager Goals PT Halfway Goals Time Frame: Feb 25, 2022 Roll Left & Right (QC): 4 Sit to Lying (QC): 4 Lying-Sitting on Side/Bed(QC): 4 Sit to Stand (QC): 4 Chair/Scq-wi-Luqkc Xfer(QC): 4 Walk 10 feet (QC): 4 Walk 50ft with 2 Turns (QC): 4 PT Plan Problem List Problem List: Activity Tolerance, Functional Strength, Safety, Balance, Gait, Transfer, Bed Mobility, ROM Treatment/Plan Treatment Plan: Continue Plan of Care Treatment Plan: Bed Mobility, Education, Functional Activity Jenni, Functional Strength, Gait, Safety, Therapeutic Exercise, Transfers Treatment Duration: Feb 25, 2022 Frequency: 11 times per week Estimated Hrs Per Day: .25 hour per day Patient and/or Family Agrees t: Yes Safety Risks/Education Patient Education: Gait Training, Transfer Techniques, Correct Positioning, Safety Issues Teaching Recipient: Patient Teaching Methods: Demonstration, Discussion Response to Teaching: Reinforcement Needed Time/GCodes Time In: 0800 Time Out: 812 Total Billed Treatment Time: 13 Total Billed Treatment 1 visit FA ROXANNE COLIN PT Feb 19, 2022 08:22
[2022-02-19 11:37] VITALS: BP 113/74
[2022-02-19] MEDS: ONDANSETRON 4 MG/2 ML (SDV) Z0FRAN IV PRN ×2 (12:58→17:19)
[2022-02-19] MEDS: ACETAMINOPHEN 500 MG TAB (TYLENOL) PO PRN ×2 (13:10→22:57)
[2022-02-19 16:13] LABS: CLARITY,URINE CLEAR; COLOR,URINE YELLOW; GLUCOSE, URINE (UA) NEGATIVE (NEGATIVE); KETONES,URINE NEGATIVE (NEGATIVE); LEUKOCYTE ESTERASE ,URINE TRACE (NEGATIVE); NITRITE,URINE NEGATIVE (NEGATIVE); PH,URINE 5.5 (5-9); PROTEIN,URINE 1+ (NEGATIVE)
[2022-02-19 16:16] VITALS: BP 119/73
[2022-02-19 16:59] LABS: BACTERIA,URINE FEW /HPF; GRANULAR CASTS,URINE RARE /LPF; SQUAMOUS EPITHELIAL CELL,UR 0-2 /HPF
[2022-02-19 17:01] LABS: BILIRUBIN,URINE 1+ (NEGATIVE)
[2022-02-19 20:13] VITALS: BP 107/69
[2022-02-19] MEDS: MELATONIN 3 MG TABLET PO SCH (20:17)
[2022-02-19] MEDS: guaiFENesin/DM (ROBITUSSIN DM) 10 ML UDC PO SCH (23:00)
[2022-02-20] VITALS (8 sets, daily range): BP systolic 105–178; BP diastolic 67–105
[2022-02-20] MEDS: NS IV 1000 ML 1,000 ML IV SCH (01:19)
[2022-02-20] MEDS: inSUlin ASPART (NovoLOG) 1 UNIT/0.01 ML (CHARGE PER UNIT) SC SCH ×4 (06:14→21:58)
[2022-02-20] MEDS: MULTIVIT W/MINERALS TAB (THERAGRAN M) PO SCH (06:14)
[2022-02-20] MEDS: guaiFENesin/DM (ROBITUSSIN DM) 10 ML UDC PO SCH ×3 (06:14→17:58)
[2022-02-20] MEDS: ACETAMINOPHEN 500 MG TAB (TYLENOL) PO PRN ×2 (06:17→19:45)
--- NOTE | 2022-02-20 07:35 | Progress Note - Ortho ---
Progress Note Subjective Date of Exam 02/20/22 Chief Complaint POD #3 L TKA HPI/Events since last exam continues to be slow to mobilize, some difficulty with nausea, not feeling as well today Review of Systems - Allergies: Coded Allergies: No Known Drug Allergies (Unverified , 02/09/22) Home Meds Reported Medications Acetaminophen (Tylenol Arthritis) 650 Mg Tablet.er, 1300 MG PO Q8H, TAB 02/09/22 Psyllium Husk (with Sugar) (Metamucil Packet) 3.4 Gram Powd.pack, 3.4 GM PO UD, EACH 02/09/22 Semaglutide (Ozempic) 1 Mg/0.75 Ml (4 Mg/3 Ml) Pen.injctr, 1 MG SQ WEEK, EA 02/09/22 Omeprazole (Omeprazole) 20 Mg Capsule.dr, 20 MG PO DAILY, CAP 02/09/22 Multivitamin (Multi-Vitamin Daily) 1 Each Tablet, 1 EACH PO DAILY, TAB 02/09/22 Metformin HCl (Metformin HCl) 500 Mg Tablet, 500 MG PO DAILY, TAB 02/09/22 Memantine HCl (Memantine HCl) 10 Mg Tablet, 10 MG PO BID, TAB 02/09/22 Melatonin/Pyridoxine HCl (B6) (Melatonin 3 mg Tablet) 3 Mg-10 Mg Tablet, 1 EACH PO HS, TAB 02/09/22 Magnesium Oxide (Magnesium) 400 Mg Magnesium Capsule, 400 MG PO DAILY, CAP 02/09/22 Losartan Potassium (Losartan Potassium) 50 Mg Tablet, 50 MG PO DAILY, TAB 02/09/22 Loratadine (Loratadine) 10 Mg Tablet, 10 MG PO DAILY, TAB 02/09/22 Insulin Glargine,Hum.rec.anlog (Insulin Glargine) 100 Unit/Ml Vial, 100 UNIT SQ EVENING, VIAL 02/09/22 Ibuprofen (Ibuprofen) 600 Mg Tablet, 600 MG PO TID PRN for PAIN-MILD, TAB 02/09/22 Donepezil HCl (Donepezil HCl) 10 Mg Tablet, 10 MG PO BID, TAB 02/09/22 Cyclobenzaprine HCl (Cyclobenzaprine HCl) 10 Mg Tablet, 10 MG PO BID, TAB 02/09/22 [Vit D3 25MCG] No Conflict Check 02/09/22 [Vit B12 1000MG D] No Conflict Check 02/09/22 Carbamazepine (Carbamazepine) 200 Mg Cpmp.12hr, 200 MG PO Q12H, CAP 02/09/22 Bupropion HCl (Bupropion HCl Sr) 150 Mg Tablet.er, 150 MG PO BID, TAB 02/09/22 Atorvastatin Calcium (Atorvastatin Calcium) 80 Mg Tablet, 80 MG PO DAILY, TAB 02/09/22 Aspirin (Aspirin) 81 Mg Tab.chew, 81 MG PO DAILY, TAB 02/09/22 Discontinued Reported Medications Carvedilol (Carvedilol) 25 Mg Tablet, 25 MG PO BID, TAB 02/09/22 Objective Exam L Knee: Incision C/D/I, +DF of ankle, no s/s of DVT Vital Signs Vital Signs Date Time Temp Pulse Resp B/P (MAP) Pulse Ox O2 Delivery O2 Flow Rate FiO2 02/20/22 06:17 37.0 02/20/22 04:00 37.3 90 18 105/67 (80) 94 Room Air 02/20/22 00:06 95 20 113/72 (86) 94 Room Air 02/19/22 23:27 37.0 02/19/22 22:57 37.9 02/19/22 20:13 37.8 94 18 107/69 (82) 95 Room Air 02/19/22 20:00 Room Air 02/19/22 16:16 38.1 98 20 119/73 (88) 97 Room Air 02/19/22 11:37 37.4 94 20 113/74 (87) 94 Room Air 02/19/22 07:36 95 Room Air 0.00 I & O 02/20/22 07:00 Intake Total 2600 ml Output Total 3550 ml Balance -950 ml Lab Results Laboratory Tests 02/19/22 11:25: Glucometer 206H 02/19/22 16:00: Urine Color YELLOW, Urine Clarity CLEAR, Urine pH 5.5, Urine Specific [place] 1.025H, Urine Protein 1+H, Urine Glucose (UA) NEGATIVE, Urine Ketones NEGATIVE, Urine Nitrite NEGATIVE, Urine Bilirubin 1+H, Urine Urobilinogen 1.0, Urine Leukocyte Esterase TRACEH, Urine RBC (Auto) 2+H, Urine RBC 5-10H, Urine WBC 5- 10H, Urine Squamous Epithelial Cells 0-2, Urine Crystals NONE, Urine Bacteria FEWH, Urine Casts PRESENT, Urine Granular Casts RARE, Urine Mucus NEGATIVE, Urine Culture Indicated YES 02/19/22 16:12: Glucometer 182H 02/19/22 20:44: Glucometer 111H 02/20/22 05:13: Glucometer 107 Microbiology 02/17/22 MRSA Screen - Final, Complete MRSA not isolated Assessment and Plan Assessment 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
[2022-02-20] MEDS: DONEPEZIL 10 MG (ARICEPT) TAB PO SCH ×2 (08:48→22:00)
[2022-02-20] MEDS: ASPIRIN E.C. 81 MG (ECOTRIN) TAB PO SCH ×2 (08:48→17:58)
[2022-02-20] MEDS: DOCUSATE SODIUM 100 MG (COLACE) CAP PO SCH ×2 (08:48→22:00)
[2022-02-20] MEDS: CELECOXIB 100 MG (CeleBREX) CAP PO SCH ×2 (08:48→22:00)
[2022-02-20] MEDS: LOSARTAN 50 MG (COZAAR) TAB PO SCH (08:48)
[2022-02-20] MEDS: PANTOPRAZOLE 20 MG TABLET (PROTONIX) PO SCH (08:48)
[2022-02-20] MEDS: MEMANTINE 10 MG (NAMENDA) TABLET PO SCH ×2 (08:48→22:00)
[2022-02-20] MEDS: CYCLOBENZAPRINE 10 MG (FLEXERIL) TAB PO SCH ×2 (08:48→22:00)
[2022-02-20] MEDS: carBAMazepine 200 MG (TEGretol) TAB PO SCH ×2 (08:48→21:59)
[2022-02-20] MEDS: LORATADINE (CLARITIN) 10 MG TAB PO SCH (08:48)
[2022-02-20] MEDS: buPROPion SR 150 MG (WELLBUTRIN SR) TAB PO SCH ×2 (08:49→22:00)
[2022-02-20] MEDS: metFORMIN 500 MG (GLUCOPHAGE) TAB PO SCH (08:49)
[2022-02-20] MEDS: MAGNESIUM OXIDE (MAG-OX)400 MG TAB PO SCH (08:49)
--- NOTE | 2022-02-20 10:20 | Physical Therapy Daily Note ---
PT Daily Note-Current Subjective Patient agrees to PT. Pain Numeric Pain Scale: 5-Moderate Pain Location: Left Location Body Site: Knee Pain Description: Acute Mental Status Patient Orientation: Normal For Age Transfers SCALE: Activities may be completed with or without assistive devices. 2-Sxrzlvckdv-frkbfaq completes the activity by him/herself with no assistance from a helper. 5-Set-up or Clean-up Assistance-helper sets up or cleans up; patient completes activity. [place] assists only prior to or following the activity. 4-Supervision or Touching Assistance-helper provides verbal cues and/or touching/steadying and/or contact guard assistance as patient completes activity. Assistance may be provided throughout the activity or intermittently. 3-Partial/Moderate Assistance-helper does LESS THAN HALF the effort. [place] lifts, holds or supports trunk or limbs, but provides less than half the effort. 2-Substantial/Maximal Assistance-helper does MORE THAN HALF the effort. [place] lifts or holds trunk or limbs and provides more than half the effort. 3-Lggjqixnp-stkqqa does ALL the effort. Patient does none of the effort to complete the activity. Or, the assistance of 2 or more helpers is required for the patient to complete the activity. If activity was not attempted, code reason: 7-Patient Refused. 9-Not Applicable-not attempted and the patient did not perform the activity before the current illness, exacerbation or injury. 10-Not Attempted due to Environmental Limitations-(lack of equipment, weather restraints, etc.). 88-Not Attempted due to Medical Conditions or Safety Concerns. Lying to Sitting/Side of Bed(Q: 4 Sit to Stand (QC): 4 Chair/Zmu-no-Uorvz Xfer(QC): 4 Weight Bearing Right Lower Extremity: Right Full Weight Bearing Left Lower Extremity: Left Weight Bearing/Tolerated Gait Training Distance: 175' Walk 10 feet (QC): 4 Walk 50 ft with 2 Turns(QC): 4 Walk 150 ft (QC): 4 Gait Assistive Device: FWW slow, slightly antalgic, functional gait sequence Exercises Supine Ex: Ankle pumps, Quad Set, Heel Slides, Straight leg raise Supine Reps: 12 (AAROM SLR left) Seated Therapy Exercises: Long arc quads Seated Reps: 15 Assessment PT dons left ankle brace and shoes to allow patient to ambulate safely in hallway. PT to continue to increase activity as tolerated by patient. PT Assisted Goals Knotter Hand Goals PT Knotter Hand Goals Time Frame: Feb 25, 2022 Roll Left & Right (QC): 4 Sit to Lying (QC): 4 Lying-Sitting on Side/Bed(QC): 4 Sit to Stand (QC): 4 Chair/Pon-du-Anehu Xfer(QC): 4 Walk 10 feet (QC): 4 Walk 50ft with 2 Turns (QC): 4 PT Plan Treatment/Plan Treatment Plan: Continue Plan of Care Treatment Plan: Bed Mobility, Education, Functional Activity Jenni, Functional Strength, Gait, Safety, Therapeutic Exercise, Transfers Treatment Duration: Feb 25, 2022 Frequency: 11 times per week Estimated Hrs Per Day: .25 hour per day Patient and/or Family Agrees t: Yes Time/GCodes Time In: 925 Time Out: 950 Total Billed Treatment Time: 25 Total Billed Treatment 1 visit EX 12 min GT 13 min MARCIE BROWN PT Feb 20, 2022 10:20
[2022-02-20] MEDS ORDERED: NS IV 1000 ML 1,000 ML IV ONE (13:15)
--- NOTE | 2022-02-20 14:01 | Physical Therapy Daily Note ---
PT Daily Note-Current Subjective Patient agrees to PT. Mental Status Patient Orientation: Normal For Age Transfers SCALE: Activities may be completed with or without assistive devices. 3-Tbvgvltgmu-fmkvgaj completes the activity by him/herself with no assistance from a helper. 5-Set-up or Clean-up Assistance-helper sets up or cleans up; patient completes activity. [place] assists only prior to or following the activity. 4-Supervision or Touching Assistance-helper provides verbal cues and/or touching/steadying and/or contact guard assistance as patient completes activity. Assistance may be provided throughout the activity or intermittently. 3-Partial/Moderate Assistance-helper does LESS THAN HALF the effort. [place] lifts, holds or supports trunk or limbs, but provides less than half the effort. 2-Substantial/Maximal Assistance-helper does MORE THAN HALF the effort. [place] lifts or holds trunk or limbs and provides more than half the effort. 6-Yinwnbqsx-qldzll does ALL the effort. Patient does none of the effort to complete the activity. Or, the assistance of 2 or more helpers is required for the patient to complete the activity. If activity was not attempted, code reason: 7-Patient Refused. 9-Not Applicable-not attempted and the patient did not perform the activity befo re the current illness, exacerbation or injury. 10-Not Attempted due to Environmental Limitations-(lack of equipment, weather re straints, etc.). 88-Not Attempted due to Medical Conditions or Safety Concerns. Sit to Lying (QC): 6 Sit to Stand (QC): 4 Chair/Bjz-ci-Zvssn Xfer(QC): 4 Toilet Transfer (QC): 4 patient able to toilet self after BM Weight Bearing Right Lower Extremity: Right Full Weight Bearing Left Lower Extremity: Left Weight Bearing/Tolerated Gait Training Distance: 20' x 2 Walk 10 feet (QC): 4 Gait Assistive Device: FWW antalgic Exercises Supine Ex: Ankle pumps, Quad Set, Heel Slides, Straight leg raise Supine Reps: 15 Treatments Orthostatic BP taken by RN due to patient c/o dizziness (refer to nursing notes). Assessment Patient tolerated treatment well and returned to bed. Patient is improving slowly with treatment plan. PT to continue to increase activity as tolerated by patient. PT Halfway Goals Halfway Goals PT Halfway Goals Time Frame: Feb 25, 2022 Roll Left & Right (QC): 4 Sit to Lying (QC): 4 Lying-Sitting on Side/Bed(QC): 4 Sit to Stand (QC): 4 Chair/Tie-nx-Hcinl Xfer(QC): 4 Walk 10 feet (QC): 4 Walk 50ft with 2 Turns (QC): 4 PT Plan Treatment/Plan Treatment Plan: Continue Plan of Care Treatment Plan: Bed Mobility, Education, Functional Activity Jenni, Functional Strength, Gait, Safety, Therapeutic Exercise, Transfers Treatment Duration: Feb 25, 2022 Frequency: 11 times per week Estimated Hrs Per Day: .25 hour per day Patient and/or Family Agrees t: Yes Time/GCodes Time In: 1300 Time Out: 1323 Total Billed Treatment Time: 23 Total Billed Treatment 1 visit EX 12 min FA 11 min MARCIE BROWN PT Feb 20, 2022 14:01
--- NOTE | 2022-02-20 15:10 | Occupational Therapy Eval ---
OT Evaluation-General/PLF Medical Diagnosis Admission Date Feb 18, 2022 at 12:11 Medical Diagnosis: left TKA Onset Date: Feb 17, 2022 Therapy Diagnosis Therapy Diagnosis: decreased ADL status Precautions Precautions/Isolations: Fall Prevention, Standard Precautions Referral Physician: Mell Referral Reason: Evaluation/Treatment Medical History Current History s/p L TKA 02/17/22 Social History Home: [facility] Current Living Status: Spouse Entry Into Home: Stairs Without Railing Steps Into Home: 1 ADL-Prior Level of Function SCALE: Activities may be completed with or without assistive devices. 3-Otaglstrvh-zohslfo completes the activity by him/herself with no assistance from a helper. 5-Set-up or Clean-up Assistance-helper sets up or cleans up; patient completes activity. [place] assists only prior to or following the activity. 4-Supervision or Touching Assistance-helper provides verbal cues and/or touching/steadying and/or contact guard assistance as patient completes activity. Assistance may be provided throughout the activity or intermittently. 3-Partial/Moderate Assistance-helper does LESS THAN HALF the effort. [place] lifts, holds or supports trunk or limbs, but provides less than half the effort. 2-Substantial/Maximal Assistance-helper does MORE THAN HALF the effort. [place] lifts or holds trunk or limbs and provides more than half the effort. 9-Obwbdsnrz-dxokkb does ALL the effort. Patient does none of the effort to complete the activity. Or, the assistance of 2 or more helpers is required for the patient to complete the activity. If activity was not attempted, code reason: 7-Patient Refused. 9-Not Applicable-not attempted and the patient did not perform the activity before the current illness, exacerbation or injury. 10-Not Attempted due to Environmental Limitations-(lack of equipment, weather restraints, etc.). 88-Not Attempted due to Medical Conditions or Safety Concerns. ADL PLOF Comments Pt reports IND with ADLs and functional mobility at PLOF, using SPC. Pt lives in a 2 story house with his , bedroom and bathroom are located on the main level. He has a tub/shower with a SC. His isn't able to assist him too much with ADLs, if she gets onto the ground, she is unable to get up. Pt also has a son that lives next door to him, and is able to help some. Self Care: Independent Functional Cognition: Independent OT Current Status Subjective Pt in bed, agreeable to OT evaluation. Current Glasses/Contacts: Yes Upper Extremity ROM WFL Upper Extremity Strength grossly 3/5 ADL-Treatment Eating (QC): 6 On/Off Footwear (QC): 2 (Pt able to don/doff R gripper sock, total assist would be required with L footwear (gripper sock, ankle brace)) Toileting Hygiene (QC): 4 (Per pt and PT report, pt able to complete hygiene after BM) Other Treatments Pt in bed, declined ADLs as he just went to the bathroom. Pt reports he was able to complete hygiene after BM (PT confirms this). Pt completed footwear at bed level, able to doff/don R gripper sock, but unable to flex L knee enough to reach his foot. Pt would require total assist to doff/don L gripper sock and with ankle brace. OT educated pt on OT POC while he is in the hospital with focus on increasing safety and independence with LBD and footwear, he verbalized understanding. Post tx, pt in bed, call light in reach and all needs met. Education OT Patient Education: Correct positioning, Energy conservation, Modified ADL techniques, Progress toward Goal/Update tx plan, Purpose of tx/functional activities, Rehab process Teaching Recipient: Patient Teaching Methods: Discussion Response to Teaching: Verbalize Understanding OT Card Cutter Helper Goals Correction Goals Time Frame: Mar 03, 2022 Eating (QC): 6 Oral Hygiene (QC): 6 Toileting Hygiene (QC): 6 Shower/Bathe Self (QC): 4 Upper Body Dressing (QC): 5 Lower Body Dressing (QC): 4 On/Off Footwear (QC): 4 Additional Goals: 1-Demonstrate ADL Tasks, 2-Verbalize Understanding, 3- ImproveStrength/Jenni 1=Demonstrate adherence to instructed precautions during ADL tasks. 2=Patient will verbalize/demonstrate understanding of assistive devices/modifications for ADL. 3=Patient will improve strength/tolerance for activity to enable patient to perform ADL's. OT Education/Plan Problem List/Assessment Assessment: Decreased Activ Tolerance, Decreased UE Strength, Impaired Funct Balance, Impaired I ADL's, Impaired Self-Care Skills Discharge Recommendations Plan/Recommendations: Continue POC Treatment Plan/Plan of Care Patient would benefit from OT for education, treatment and training to promote independence in ADL's, mobility, safety and/or upper extremity function for ADL's. Plan of Care: ADL Retraining, Functional Mobility, UE Funct Exercise/Act Treatment Duration: Mar 03, 2022 Frequency: 3 times per week (3-5 times per week) Rehab Potential: Guarded Time/GCodes Start Time: 14:32 Stop Time: 14:41 Total Time Billed (hr/min): 9 Billed Treatment Time 1, NEIL BERNAL OT Feb 20, 2022 15:10
[2022-02-20 20:23] LABS: BASOPHILS % (AUTO) 0 % (0-10); EOSINOPHILS # (AUTO) 0.1 10^3/uL (0.0-0.3); EOSINOPHILS % (AUTO) 1 % (0-10); HEMATOCRIT 30 % (40-54); HEMOGLOBIN 10.2 g/dL (13.3-17.7); LYMPHOCYTES # (AUTO) 1.3 10^3/uL (1.0-4.0); LYMPHOCYTES % (AUTO) 15 % (12-44); MEAN CORPUSCULAR HEMOGLOBIN 32 pg (25-34); MEAN CORPUSCULAR HGB CONC 35 g/dL (32-36); MEAN CORPUSCULAR VOLUME 93 fL (80-99); MEAN PLATELET VOLUME 10.1 fL (9.0-12.2); MONOCYTES # (AUTO) 0.6 10^3/uL (0.0-1.0); MONOCYTES % (AUTO) 6 % (0-12); NEUTROPHILS # (AUTO) 6.9 10^3/uL (1.8-7.8); NEUTROPHILS % (AUTO) 77 % (42-75); PLATELET COUNT 157 10^3/uL (130-400); WHITE BLOOD COUNT 8.9 10^3/uL (4.3-11.0)
[2022-02-20] MEDS: MELATONIN 3 MG TABLET PO SCH (22:00)
[2022-02-21] VITALS (8 sets, daily range): BP systolic 111–170; BP diastolic 67–104
[2022-02-21] MEDS: guaiFENesin/DM (ROBITUSSIN DM) 10 ML UDC PO SCH ×4 (00:04→17:23)
[2022-02-21] MEDS: inSUlin ASPART (NovoLOG) 1 UNIT/0.01 ML (CHARGE PER UNIT) SC SCH ×4 (06:22→20:48)
[2022-02-21] MEDS: MULTIVIT W/MINERALS TAB (THERAGRAN M) PO SCH (06:41)
[2022-02-21] MEDS: CELECOXIB 100 MG (CeleBREX) CAP PO SCH ×2 (07:59→20:49)
[2022-02-21] MEDS: DOCUSATE SODIUM 100 MG (COLACE) CAP PO SCH ×2 (07:59→20:48)
[2022-02-21] MEDS: buPROPion SR 150 MG (WELLBUTRIN SR) TAB PO SCH ×2 (07:59→20:49)
[2022-02-21] MEDS: CYCLOBENZAPRINE 10 MG (FLEXERIL) TAB PO SCH ×2 (07:59→20:49)
[2022-02-21] MEDS: MAGNESIUM OXIDE (MAG-OX)400 MG TAB PO SCH (07:59)
[2022-02-21] MEDS: PANTOPRAZOLE 20 MG TABLET (PROTONIX) PO SCH (08:00)
[2022-02-21] MEDS: metFORMIN 500 MG (GLUCOPHAGE) TAB PO SCH (08:00)
[2022-02-21] MEDS: DONEPEZIL 10 MG (ARICEPT) TAB PO SCH ×2 (08:00→20:49)
[2022-02-21] MEDS: LORATADINE (CLARITIN) 10 MG TAB PO SCH (08:00)
[2022-02-21] MEDS: ASPIRIN E.C. 81 MG (ECOTRIN) TAB PO SCH ×2 (08:00→17:23)
[2022-02-21] MEDS: carBAMazepine 200 MG (TEGretol) TAB PO SCH ×2 (08:00→20:49)
[2022-02-21] MEDS: LOSARTAN 50 MG (COZAAR) TAB PO SCH (08:00)
[2022-02-21] MEDS: MEMANTINE 10 MG (NAMENDA) TABLET PO SCH ×2 (08:00→20:49)
--- NOTE | 2022-02-21 08:14 | Progress Note - Ortho ---
Progress Note Subjective Date of Exam 02/21/22 Chief Complaint POD #4 L TKA HPI/Events since last exam feeling better this AM, had elevated temperature again last PM as well as some issues with blood pressure, making some progress with therapy Review of Systems - Allergies: Coded Allergies: No Known Drug Allergies (Unverified , 02/09/22) Home Meds Reported Medications Acetaminophen (Tylenol Arthritis) 650 Mg Tablet.er, 1300 MG PO Q8H, TAB 02/09/22 Psyllium Husk (with Sugar) (Metamucil Packet) 3.4 Gram Powd.pack, 3.4 GM PO UD, EACH 02/09/22 Semaglutide (Ozempic) 1 Mg/0.75 Ml (4 Mg/3 Ml) Pen.injctr, 1 MG SQ WEEK, EA 02/09/22 Omeprazole (Omeprazole) 20 Mg Capsule.dr, 20 MG PO DAILY, CAP 02/09/22 Multivitamin (Multi-Vitamin Daily) 1 Each Tablet, 1 EACH PO DAILY, TAB 02/09/22 Metformin HCl (Metformin HCl) 500 Mg Tablet, 500 MG PO DAILY, TAB 02/09/22 Memantine HCl (Memantine HCl) 10 Mg Tablet, 10 MG PO BID, TAB 02/09/22 Melatonin/Pyridoxine HCl (B6) (Melatonin 3 mg Tablet) 3 Mg-10 Mg Tablet, 1 EACH PO HS, TAB 02/09/22 Magnesium Oxide (Magnesium) 400 Mg Magnesium Capsule, 400 MG PO DAILY, CAP 02/09/22 Losartan Potassium (Losartan Potassium) 50 Mg Tablet, 50 MG PO DAILY, TAB 02/09/22 Loratadine (Loratadine) 10 Mg Tablet, 10 MG PO DAILY, TAB 02/09/22 Insulin Glargine,Hum.rec.anlog (Insulin Glargine) 100 Unit/Ml Vial, 100 UNIT SQ EVENING, VIAL 02/09/22 Ibuprofen (Ibuprofen) 600 Mg Tablet, 600 MG PO TID PRN for PAIN-MILD, TAB 02/09/22 Donepezil HCl (Donepezil HCl) 10 Mg Tablet, 10 MG PO BID, TAB 02/09/22 Cyclobenzaprine HCl (Cyclobenzaprine HCl) 10 Mg Tablet, 10 MG PO BID, TAB 02/09/22 [Vit D3 25MCG] No Conflict Check 02/09/22 [Vit B12 1000MG D] No Conflict Check 02/09/22 Carbamazepine (Carbamazepine) 200 Mg Cpmp.12hr, 200 MG PO Q12H, CAP 02/09/22 Bupropion HCl (Bupropion HCl Sr) 150 Mg Tablet.er, 150 MG PO BID, TAB 02/09/22 Atorvastatin Calcium (Atorvastatin Calcium) 80 Mg Tablet, 80 MG PO DAILY, TAB 02/09/22 Aspirin (Aspirin) 81 Mg Tab.chew, 81 MG PO DAILY, TAB 02/09/22 Discontinued Reported Medications Carvedilol (Carvedilol) 25 Mg Tablet, 25 MG PO BID, TAB 02/09/22 Objective Exam L Knee: Incision C/D/I, +DF of ankle, no s/s of DVT Vital Signs Vital Signs Date Time Temp Pulse Resp B/P (MAP) Pulse Ox O2 Delivery O2 Flow Rate FiO2 02/21/22 07:32 96 Room Air 02/21/22 07:27 37.7 91 18 161/80 (107) 97 Room Air 02/21/22 04:25 36.9 88 18 125/78 (94) 99 Room Air 02/21/22 00:32 37.2 102 20 111/67 (82) 96 Room Air 02/20/22 21:22 37.7 02/20/22 20:53 38.1 110 20 142/83 (102) 94 Room Air 02/20/22 20:00 96 Room Air 02/20/22 19:45 39.1 02/20/22 19:38 39.1 116 20 165/101 (122) 94 Room Air 02/20/22 19:10 36.8 115 20 178/105 (129) 97 Room Air 02/20/22 15:47 37.1 94 18 149/84 (105) 96 Room Air 02/20/22 12:35 37.1 94 18 115/73 (87) 95 Room Air I & O 02/21/22 07:00 Intake Total 4090 ml Output Total 3950 ml Balance 140 ml Lab Results Laboratory Tests 02/20/22 11:03: Glucometer 240H 02/20/22 15:51: Glucometer 177H 02/20/22 19:42: Glucometer 311H 02/20/22 20:06: White Blood Count 8.9, Red Blood Count 3.17L, Hemoglobin 10.2L, Hematocrit 30L, Mean Corpuscular Volume 93, Mean Corpuscular Hemoglobin 32, Mean Corpuscular Hemoglobin Concent 35, Red Cell Distribution Width 12.8, Platelet Count 157, Mean Platelet Volume 10.1, Immature Granulocyte % (Auto) 1, Neutrophils (%) (Auto) 77H, Lymphocytes (%) (Auto) 15, Monocytes (%) (Auto) 6, Eosinophils (%) (Auto) 1, Basophils (%) (Auto) 0, Neutrophils # (Auto) 6.9, Lymphocytes # (Auto) 1.3, Monocytes # (Auto) 0.6, Eosinophils # (Auto) 0.1, Basophils # (Auto) 0.0, Immature Granulocyte # (Auto) 0.1 02/20/22 20:07: Glucometer 317H 02/21/22 05:50: Glucometer 89 Microbiology 02/19/22 Urine Culture - Final, Complete NO GROWTH 02/17/22 MRSA Screen - Final, Complete MRSA not isolated Assessment and Plan Assessment 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
--- NOTE | 2022-02-21 11:29 | Physical Therapy Daily Note ---
PT Daily Note-Current Subjective Patient agrees to PT. Pain Numeric Pain Scale: 7 Location: Left Location Body Site: Knee Pain Description: Acute Mental Status Patient Orientation: Normal For Age Transfers SCALE: Activities may be completed with or without assistive devices. 4-Pdyhlerklh-gjwcrio completes the activity by him/herself with no assistance from a helper. 5-Set-up or Clean-up Assistance-helper sets up or cleans up; patient completes activity. [place] assists only prior to or following the activity. 4-Supervision or Touching Assistance-helper provides verbal cues and/or touching/steadying and/or contact guard assistance as patient completes activity . Assistance may be provided throughout the activity or intermittently. 3-Partial/Moderate Assistance-helper does LESS THAN HALF the effort. [place] lifts, holds or supports trunk or limbs, but provides less than half the effort. 2-Substantial/Maximal Assistance-helper does MORE THAN HALF the effort. [place] lifts or holds trunk or limbs and provides more than half the effort. 9-Maznzipmu-syqzxb does ALL the effort. Patient does none of the effort to complete the activity. Or, the assistance of 2 or more helpers is required for the patient to complete the activity. If activity was not attempted, code reason: 7-Patient Refused. 9-Not Applicable-not attempted and the patient did not perform the activity before the current illness, exacerbation or injury. 10-Not Attempted due to Environmental Limitations-(lack of equipment, weather restraints, etc.). 88-Not Attempted due to Medical Conditions or Safety Concerns. Lying to Sitting/Side of Bed(Q: 4 Sit to Stand (QC): 3 Chair/Ulh-pj-Trlyd Xfer(QC): 3 Weight Bearing Right Lower Extremity: Right Full Weight Bearing Left Lower Extremity: Left Weight Bearing/Tolerated Gait Training Distance: 100' Walk 10 feet (QC): 3 Walk 50 ft with 2 Turns(QC): 3 Walk 150 ft (QC): 88 Gait Assistive Device: FWW very slow, step to gait sequence with flexed trunk posture Exercises Supine Ex: Ankle pumps, Quad Set, Heel Slides, Straight leg raise Supine Reps: 15 Seated Therapy Exercises: Long arc quads Seated Reps: 15 Assessment Patient requires time to complete all functional tasks. PT dons left ankle support and shoe. PT to increase activity as tolerated by patient. PT Hand Packer Goals Prison Goals PT Hand Packer Goals Time Frame: Feb 25, 2022 Roll Left & Right (QC): 4 Sit to Lying (QC): 4 Lying-Sitting on Side/Bed(QC): 4 Sit to Stand (QC): 4 Chair/Foa-xh-Ixdux Xfer(QC): 4 Walk 10 feet (QC): 4 Walk 50ft with 2 Turns (QC): 4 PT Plan Treatment/Plan Treatment Plan: Continue Plan of Care Treatment Plan: Bed Mobility, Education, Functional Activity Jenni, Functional Strength, Gait, Safety, Therapeutic Exercise, Transfers Treatment Duration: Feb 25, 2022 Frequency: 11 times per week Estimated Hrs Per Day: .25 hour per day Patient and/or Family Agrees t: Yes Time/GCodes Time In: 1056 Time Out: 1119 Total Billed Treatment Time: 23 Total Billed Treatment 1 visit EX 13 min GT 10 min MARCIE BROWN PT Feb 21, 2022 11:29
--- NOTE | 2022-02-21 13:47 | Occupational Ther Daily Note ---
OT Current Status-Daily Note Subjective Pt alert, lying in bed. Pt stated that PT had just gotten him back to bed. Agrees to bed exercises. Mental Status/Objective Patient Orientation: Person, Place, Time, Situation Attachments: IV ADL-Treatment Therapy Code Descriptions/Definitions Functional [place] Measure: 0=Not Assessed/NA 4=Minimal Assistance 1=Total Assistance 5=Supervision or Setup 2=Maximal Assistance 6=Modified [place] 3=Moderate Assistance 7=Complete IndependenceSCALE: Activities may be completed with or without assistive devices. 6-Juytmbfomq-igrzvti completes the activity by him/herself with no assistance from a helper. 5-Set-up or Clean-up Assistance-helper sets up or cleans up; patient completes activity. [place] assists only prior to or following the activity. 4-Supervision or Touching Assistance-helper provides verbal cues and/or touching/steadying and/or contact guard assistance as patient completes act ivity. Assistance may be provided throughout the activity or intermittently. 3-Partial/Moderate Assistance-helper does LESS THAN HALF the effort. [place] lifts, holds or supports trunk or limbs, but provides less than half the effort. 2-Substantial/Maximal Assistance-helper does MORE THAN HALF the effort. [place] lifts or holds trunk or limbs and provides more than half the effort. 9-Tqogtkaks-pervju does ALL the effort. Patient does none of the effort to complete the activity. Or, the assistance of 2 or more helpers is required for the patient to complete the activity. If activity was not attempted, code reason: 7-Patient Refused. 9-Not Applicable-not attempted and the patient did not perform the activity before the current illness, exacerbation or injury. 10-Not Attempted due to Environmental Limitations-(lack of equipment, weather restraints, etc.). 88-Not Attempted due to Medical Conditions or Safety Concerns. Other Treatment Pt completed 4 B UE exercises in supine against gravity, 1 set 15 reps each to strengthen for daily functional activities. Skilled instruction for correct technique. Pt declined to complete another set due to fatigue. After therapy, pt lying in bed with eyes closed. Call light/phone in reach. All needs met. OT Group Home Goals Group Home Goals Time Frame: Mar 03, 2022 Eating (QC): 6 Oral Hygiene (QC): 6 Toileting Hygiene (QC): 6 Shower/Bathe Self (QC): 4 Upper Body Dressing (QC): 5 Lower Body Dressing (QC): 4 On/Off Footwear (QC): 4 Additional Goals: 1-Demonstrate ADL Tasks, 2-Verbalize Understanding, 3- ImproveStrength/Jenni 1=Demonstrate adherence to instructed precautions during ADL tasks. 2=Patient will verbalize/demonstrate understanding of assistive devices/modifications for ADL. 3=Patient will improve strength/tolerance for activity to enable patient to perform ADL's. OT Education/Plan Problem List/Assessment Assessment: Decreased Activ Tolerance, Decreased UE Strength, Impaired Self- Care Skills Discharge Recommendations Plan/Recommendations: Continue POC Treatment Plan/Plan of Care Patient would benefit from OT for education, treatment and training to promote independence in ADL's, mobility, safety and/or upper extremity function for ADL's. Plan of Care: ADL Retraining, Functional Mobility, UE Funct Exercise/Act Treatment Duration: Mar 03, 2022 Frequency: 3 times per week (3-5 times per week) Rehab Potential: Guarded Time/GCodes Start Time: 13:30 Stop Time: 13:42 Total Time Billed (hr/min): 12 Billed Treatment Time 1 visit-EX 1 (12 min) NORMAN CASEY Feb 21, 2022 13:47
--- NOTE | 2022-02-21 13:56 | Physical Therapy Daily Note ---
PT Daily Note-Current Subjective Patient agrees to PT. Pain Numeric Pain Scale: 5-Moderate Pain Location: Left Location Body Site: Knee Pain Description: Acute Mental Status Patient Orientation: Normal For Age Transfers SCALE: Activities may be completed with or without assistive devices. 3-Xubjduxhay-wdhvfxq completes the activity by him/herself with no assistance from a helper. 5-Set-up or Clean-up Assistance-helper sets up or cleans up; patient completes activity. [place] assists only prior to or following the activity. 4-Supervision or Touching Assistance-helper provides verbal cues and/or touching/steadying and/or contact guard assistance as patient completes activity. Assistance may be provided throughout the activity or intermittently. 3-Partial/Moderate Assistance-helper does LESS THAN HALF the effort. [place] lifts, holds or supports trunk or limbs, but provides less than half the effort. 2-Substantial/Maximal Assistance-helper does MORE THAN HALF the effort. [place] lifts or holds trunk or limbs and provides more than half the effort. 2-Pxbzbpxex-dzvpuj does ALL the effort. Patient does none of the effort to complete the activity. Or, the assistance of 2 or more helpers is required for the patient to complete the activity. If activity was not attempted, code reason: 7-Patient Refused. 9-Not Applicable-not attempted and the patient did not perform the activity before the current illness, exacerbation or injury. 10-Not Attempted due to Environmental Limitations-(lack of equipment, weather restraints, etc.). 88-Not Attempted due to Medical Conditions or Safety Concerns. Sit to Lying (QC): 6 Lying to Sitting/Side of Bed(Q: 6 Sit to Stand (QC): 4 Weight Bearing Right Lower Extremity: Right Full Weight Bearing Left Lower Extremity: Left Weight Bearing/Tolerated Gait Training Distance: 150' Walk 10 feet (QC): 4 Walk 50 ft with 2 Turns(QC): 4 Walk 150 ft (QC): 4 Gait Assistive Device: FWW very slow, step to gait sequence with trunk flexed posture (CGA for safety) Exercises Supine Ex: Quad Set, Heel Slides, Straight leg raise Supine Reps: 15 Seated Therapy Exercises: Long arc quads Seated Reps: 15 Assessment Patient AROM left knee flexion 90 degrees in sit. Patient continues to have difficulty with left quad contraction due to knee pain. PT to continue to address functional strength and mobility. PT Intermediate Goals Chef Teacher Goals PT Intermediate Goals Time Frame: Feb 25, 2022 Roll Left & Right (QC): 4 Sit to Lying (QC): 4 Lying-Sitting on Side/Bed(QC): 4 Sit to Stand (QC): 4 Chair/Foy-mw-Qfxsq Xfer(QC): 4 Walk 10 feet (QC): 4 Walk 50ft with 2 Turns (QC): 4 PT Plan Treatment/Plan Treatment Plan: Continue Plan of Care Treatment Plan: Bed Mobility, Education, Functional Activity Jenni, Functional Strength, Gait, Safety, Therapeutic Exercise, Transfers Treatment Duration: Feb 25, 2022 Frequency: 11 times per week Estimated Hrs Per Day: .25 hour per day Patient and/or Family Agrees t: Yes Time/GCodes Time In: 1300 Time Out: 1324 Total Billed Treatment Time: 24 Total Billed Treatment 1 visit EX 10 min GT 14 min MARCIE BROWN PT Feb 21, 2022 13:56
[2022-02-21] MEDS: morphine INJ 4 MG/ML 1 ML (VIAL/SYRINGE) IVP PRN (14:16)
[2022-02-21] MEDS: ONDANSETRON 4 MG/2 ML (SDV) Z0FRAN IV PRN (14:21)
[2022-02-21] MEDS: MELATONIN 3 MG TABLET PO SCH (20:48)
[2022-02-22] VITALS: BP 161/79
[2022-02-22] MEDS: guaiFENesin/DM (ROBITUSSIN DM) 10 ML UDC PO SCH ×2 (01:42→06:14)
[2022-02-22 04:38] VITALS: BP 158/74
[2022-02-22] MEDS: MULTIVIT W/MINERALS TAB (THERAGRAN M) PO SCH (06:14)
[2022-02-22] MEDS: inSUlin ASPART (NovoLOG) 1 UNIT/0.01 ML (CHARGE PER UNIT) SC SCH ×2 (06:14→11:15)
[2022-02-22 07:56] VITALS: BP 157/97
[2022-02-22] MEDS: ASPIRIN E.C. 81 MG (ECOTRIN) TAB PO SCH (08:19)
[2022-02-22] MEDS: LOSARTAN 50 MG (COZAAR) TAB PO SCH (08:20)
[2022-02-22] MEDS: DOCUSATE SODIUM 100 MG (COLACE) CAP PO SCH (08:20)
[2022-02-22] MEDS: DONEPEZIL 10 MG (ARICEPT) TAB PO SCH (08:20)
[2022-02-22] MEDS: CELECOXIB 100 MG (CeleBREX) CAP PO SCH (08:20)
[2022-02-22] MEDS: buPROPion SR 150 MG (WELLBUTRIN SR) TAB PO SCH (08:20)
[2022-02-22] MEDS: CYCLOBENZAPRINE 10 MG (FLEXERIL) TAB PO SCH (08:20)
[2022-02-22] MEDS: MAGNESIUM OXIDE (MAG-OX)400 MG TAB PO SCH (08:20)
[2022-02-22] MEDS: carBAMazepine 200 MG (TEGretol) TAB PO SCH (08:20)
[2022-02-22] MEDS: metFORMIN 500 MG (GLUCOPHAGE) TAB PO SCH (08:20)
[2022-02-22] MEDS: LORATADINE (CLARITIN) 10 MG TAB PO SCH (08:20)
[2022-02-22] MEDS: PANTOPRAZOLE 20 MG TABLET (PROTONIX) PO SCH (08:20)
[2022-02-22] MEDS: MEMANTINE 10 MG (NAMENDA) TABLET PO SCH (08:20)
[2022-02-22] MEDS: ACETAMINOPHEN 500 MG TAB (TYLENOL) PO PRN (08:21)
--- NOTE | 2022-02-22 08:54 | Physical Therapy Daily Note ---
PT Daily Note-Current Subjective Patient in bed pre tx, agrees to PT, has 6/10 pain in left knee. Appearance Patient in recliner post tx with nurse call, phone, tray, all needs met. Mental Status Patient Orientation: Person, Place, Situation Transfers SCALE: Activities may be completed with or without assistive devices. 0-Jhromioaly-yzemcdd completes the activity by him/herself with no assistance from a helper. 5-Set-up or Clean-up Assistance-helper sets up or cleans up; patient completes activity. [place] assists only prior to or following the activity. 4-Supervision or Touching Assistance-helper provides verbal cues and/or touchin g/steadying and/or contact guard assistance as patient completes activity. Assistance may be provided throughout the activity or intermittently. 3-Partial/Moderate Assistance-helper does LESS THAN HALF the effort. [place] lifts, holds or supports trunk or limbs, but provides less than half the effort. 2-Substantial/Maximal Assistance-helper does MORE THAN HALF the effort. [place] lifts or holds trunk or limbs and provides more than half the effort. 8-Ggptyychc-gnhtuy does ALL the effort. Patient does none of the effort to complete the activity. Or, the assistance of 2 or more helpers is required for the patient to complete the activity. If activity was not attempted, code reason: 7-Patient Refused. 9-Not Applicable-not attempted and the patient did not perform the activity before the current illness, exacerbation or injury. 10-Not Attempted due to Environmental Limitations-(lack of equipment, weather restraints, etc.). 88-Not Attempted due to Medical Conditions or Safety Concerns. Roll Left & Right (QC): 6 Lying to Sitting/Side of Bed(Q: 3 Sit to Stand (QC): 4 Chair/Fam-nz-Swpex Xfer(QC): 4 Weight Bearing Right Lower Extremity: Right Full Weight Bearing Left Lower Extremity: Left Weight Bearing/Tolerated Gait Training Distance: 80' Walk 10 feet (QC): 4 Walk 50 ft with 2 Turns(QC): 4 Gait Persons Needed: 1 Gait Assistive Device: FWW slow, antalgic, leans heavily on walker, decreased weight bearing on left LE, wears left ankle brace Exercises Supine Ex: Ankle pumps, Quad Set, Heel Slides, Short Arc Quads, Straight leg raise Supine Reps: 20 Treatments bed mobility and transfers, ambulation, LE ROM Assessment Current Status: Fair Progress slow progress, left knee ROM +3 degrees from full extension, 90 degrees flexion PT Physician Ophthalmologist Goals [facility] Goals PT [facility]itentiary Goals Time Frame: Feb 25, 2022 Roll Left & Right (QC): 4 Sit to Lying (QC): 4 Lying-Sitting on Side/Bed(QC): 4 Sit to Stand (QC): 4 Chair/Sqn-as-Lbtoh Xfer(QC): 4 Walk 10 feet (QC): 4 Walk 50ft with 2 Turns (QC): 4 PT Plan Problem List Problem List: Activity Tolerance, Functional Strength, Safety, Balance, Gait, Transfer, Bed Mobility, ROM Treatment/Plan Treatment Plan: Continue Plan of Care Treatment Plan: Bed Mobility, Education, Functional Activity Jenni, Functional Strength, Gait, Safety, Therapeutic Exercise, Transfers Treatment Duration: Feb 25, 2022 Frequency: 11 times per week Estimated Hrs Per Day: .25 hour per day Patient and/or Family Agrees t: Yes Safety Risks/Education Patient Education: Gait Training, Transfer Techniques, Correct Positioning, Safety Issues Teaching Recipient: Patient Teaching Methods: Demonstration, Discussion Response to Teaching: Reinforcement Needed Time/GCodes Time In: 0815 Time Out: 0836 Total Billed Treatment Time: 21 Total Billed Treatment 1 visit FA ROXANNE KING PT Feb 22, 2022 08:54
[2022-02-22] MEDS ORDERED: ASPI-1238 PO (11:12)
[2022-02-22] MEDS ORDERED: OXC5T PO (11:12)
--- NOTE | 2022-02-22 11:17 | Discharge Summary ---
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 Tolerated the procedure well and was admitted to the regular floor after surgery. Began mechanical DVT prophylaxis on the night of surgery. Had intial PT evaluation and started CPM on same day. On POD #1, he was slow to progress with therapy. He was started on chemical DVT prophylaxis. On POD #2, continued to be slow with mobilization and had some continued difficulty with pain control as well as nausea. On POD #3, swing bed evaluation was began. He continued to work with therapy. On POD #4, made some progress with therapy. Swing bed was pending [facility] approval. On POD #5, patient was continuing to make progress. Pain was controlled on oral medication. He was tolerating a regular diet. He was ready for transfer to [facility] for swing bed stay. ] Labs and Pending Lab Test: Laboratory Tests 02/21/22 15:38: Glucometer 187H 02/21/22 20:06: Glucometer 273H 02/22/22 06:13: Glucometer 126H 02/22/22 11:04: Glucometer 175H Microbiology 02/19/22 Urine Culture - Final, Complete NO GROWTH 02/17/22 MRSA Screen - Final, Complete MRSA not isolated Home Meds Active Oxyir Tablet (Oxycodone HCl) 5 Mg Tab 5 Mg PO Q4H PRN 7 Days Reported Tylenol Arthritis (Acetaminophen) 650 Mg Tablet.er 1,300 Mg PO Q8H Metamucil Packet (Psyllium Husk (with Sugar)) 3.4 Gram Powd.pack 3.4 Gm PO UD Ozempic (Semaglutide) 1 Mg/0.75 Ml (4 Mg/3 Ml) Pen.injctr 1 Mg SQ WEEK Omeprazole 20 Mg Capsule.dr 20 Mg PO DAILY Multi-Vitamin Daily (Multivitamin) 1 Each Tablet 1 Each PO DAILY Metformin HCl 500 Mg Tablet 500 Mg PO DAILY Memantine HCl 10 Mg Tablet 10 Mg PO BID Melatonin 3 mg Tablet (Melatonin/Pyridoxine HCl (B6)) 3 Mg-10 Mg Tablet 1 Each PO HS Magnesium (Magnesium Oxide) 400 Mg Magnesium Capsule 400 Mg PO DAILY Losartan Potassium 50 Mg Tablet 50 Mg PO DAILY Loratadine 10 Mg Tablet 10 Mg PO DAILY Insulin Glargine (Insulin Glargine,Hum.rec.anlog) 100 Unit/Ml Vial 100 Unit SQ EVENING Ibuprofen 600 Mg Tablet 600 Mg PO TID PRN Donepezil HCl 10 Mg Tablet 10 Mg PO BID Cyclobenzaprine HCl 10 Mg Tablet 10 Mg PO BID [Vit D3 25MCG] [Vit B12 1000MG D] Carbamazepine 200 Mg Cpmp.12hr 200 Mg PO Q12H Bupropion HCl Sr (Bupropion HCl) 150 Mg Tablet.er 150 Mg PO BID Atorvastatin Calcium 80 Mg Tablet 80 Mg PO DAILY Aspirin 81 Mg Tab.chew 81 Mg PO DAILY Assessment/Pt Instructions WBAT on Left leg; dry telfa daily to incision site, therapy for ROM/strengthening/gait training Discharge Physical Examination Vital Signs Vital Signs Date Time Temp Pulse Resp B/P (MAP) Pulse Ox O2 Delivery O2 Flow Rate FiO2 02/22/22 08:00 Room Air 02/22/22 07:56 37.4 105 18 157/97 (117) 97 02/19/22 07:36 0.00 Extremity: Other (Incision C/D/I, actively flexes and extends knee, no s/s of DVT) Allergies: Coded Allergies: No Known Drug Allergies (Unverified , 02/09/22) Discharge Summary Date of Admission Feb 18, 2022 at 12:11 Date of Discharge MARI MITCHELL MD Feb 22, 2022 11:17
--- NOTE | 2022-02-22 11:19 | Discharge Inst-Skilled Nursing ---
Discharge Inst-Skilled NF Patient Instructions Patient Instructions: WBAT on Left leg; Therapy for ROM/strengthening/gait training Consult/Follow Up/Orders Follow Up Appt.: 2 to 3 weeks from date of surgery Skilled NF Admit to: [facility] (SNF) I certify that SNF services are required to be given on an inpatient basis because of the above named patient's need for penitentiary care on a continuing basis for the conditions(s) for which he/she was receiving inpatient hospital services prior to his/her transfer to the SNF. Detention Facility Order: Physical Therapy-Evaluate & Treat Oxygen Delivery Method: Room Air Discharge Diet: ADA Diet New & Resume Previous Orders Tejinder Monte MD Feb 22, 2022 11:17 TEJINDER MONTE MD Feb 22, 2022 11:19
[2022-02-22 12:00] VITALS: BP 144/73
[2022-02-22 12:26] VITALS: BP 144/73
== END 2022-02-22 12:26 | disposition swing bed (61) | DRG 470 ==
LOC: SDC 10:53 → EDSTATUS 12:30 → 4TH 16:11 → SDC 02-18 08:20 → 4TH 02-18 12:11
PROVIDERS: ADMIT Orthopaedic Surgery; ATTEND Orthopaedic Surgery
PROC: 0SRD0J9 Replacement of Left Knee Joint with Synthetic Substitute, Cemented, Open Approach (ICD-10-PCS; principal; 2022-02-17 12:30)
DX: M17.12 Unilateral primary osteoarthritis, left knee (principal)
CPT/HCPCS: 36415; 73560; 81000; 82947; 85014; 85018; 85025; 87081; 87088; 93005; G0378

== ENCOUNTER → 2022-03-02 | Outpatient (CLI) | payer OTHER, MEDICARE ==
[~2022-03-02] MED LIST changes: +ASPI-1238 PO; +OXC5T PO
== END ==
LOC: ORTHO 09:00
PROVIDERS: ATTEND Orthopaedic Surgery
DX: Z47.89 Encounter for other orthopedic aftercare (principal); Z96.652 Presence of left artificial knee joint

== ENCOUNTER → 2022-04-04 | Outpatient (CLI) | payer OTHER, MEDICARE ==
--- NOTE | 2022-04-04 12:54 | Diagnostic Imaging Report ---
KNEE, LEFT, 2 VIEWS (AP LAT) INDICATION: Left total knee arthroplasty. Surveillance imaging. COMPARISON: 02/17/2022 TECHNIQUE: 2 views left knee FINDINGS: Noncemented left total knee arthroplasty and patella resurfacing all have components in good alignment. There is no acute periprosthetic fracture. No features of loosening or osteolysis. Small knee joint effusion has improved but persists. IMPRESSION: Left total knee arthroplasty without complication by radiography. Dictated by: Dictated on workstation # [id number]
== END ==
LOC: ORTHO 08:53
PROVIDERS: ATTEND Orthopaedic Surgery
DX: Z47.89 Encounter for other orthopedic aftercare (principal); Z96.652 Presence of left artificial knee joint
CPT/HCPCS: 73560

== ENCOUNTER → 2022-07-20 | Outpatient (CLI) | payer MEDICARE, OTHER | LOC: ORTHO 11:48 | PROVIDERS: ATTEND Orthopaedic Surgery | DX: Z96.652 Presence of left artificial knee joint (principal) | CPT/HCPCS: 99213 ==